=== PATIENT | female | born 1970 ===

== ENCOUNTER 2019-03-13 08:27 | Outpatient (CLI) | payer OTHER | END 2019-03-13 10:19 | disposition home or self-care (01) | LOC: SONOGRAMA 08:27 | DX: E04.1 Nontoxic single thyroid nodule (principal) ==

== ENCOUNTER 2023-02-05 09:42 | Outpatient (CLI) | payer OTHER | END 2023-02-05 09:44 | disposition home or self-care (01) | LOC: SONOGRAMA 09:42 | PROVIDERS: ATTEND Pathology Anatomic Pathology & Clinical Pathology | DX: D34 Benign neoplasm of thyroid gland (principal); E04.9 Nontoxic goiter, unspecified ==